=== PATIENT | male | born 1995 | race Two or more races ===

== ENCOUNTER 2016-11-25 21:46 | Emergency (ER) | payer SELFPAY ==
[~2016-11-25] VITALS: Ht 180.3 cm; Wt 65.7 kg
[2016-11-25 21:49] VITALS: BP 145/83
== END 2016-11-25 22:55 | disposition home or self-care (01) ==
LOC: ED 22:49
DX: S42.031A Displaced fracture of lateral end of right clavicle, initial encounter for closed fracture (principal); W19.XXXA Unspecified fall, initial encounter; Y93.89 Activity, other specified; Y99.8 Other external cause status; Y92.832 Beach as the place of occurrence of the external cause